=== PATIENT | female | born 1955 | race Caucasian/White ===

== ENCOUNTER 2020-01-15 11:40 | Outpatient (CLI) | payer BC, SELFPAY ==
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
== END 2020-01-15 11:41 | disposition home or self-care (01) ==
LOC: ONCMED 11:41
PROVIDERS: PCP Family Medicine; Referring Provider Family Medicine; Visit Provider Internal Medicine Medical Oncology
DX: Z08 Encounter for follow-up examination after completed treatment for malignant neoplasm (principal); Z85.048 Personal history of other malignant neoplasm of rectum, rectosigmoid junction, and anus; F51.04 Psychophysiologic insomnia; F32.9 Major depressive disorder, single episode, unspecified; E78.5 Hyperlipidemia, unspecified; E03.9 Hypothyroidism, unspecified; Z92.21 Personal history of antineoplastic chemotherapy; Z92.3 Personal history of irradiation; Z79.899 Other long term (current) drug therapy; R53.83 Other fatigue
CPT/HCPCS: 99203

== ENCOUNTER 2020-04-21 14:30 | Outpatient (CLI) | payer BC, SELFPAY ==
--- NOTE | 2020-04-21 14:35 | MR_ITS ---
WS: [id number] INDICATION: Anal cancer TECHNIQUE: MRI of the abdomen and pelvis without gadolinium enhancement axial T2, axial fiesta, axial T1 fat sat, axial T1 imaging. Coronal 2-D fiesta and STIR imaging. FINDINGS: Liver is normal in appearance. No evidence of metastatic disease in the liver. Normal frank l vein and splenic vein. Normal spleen. Small splenule. Pancreas is normal. Normal caliber abdominal aorta. No abdominal lymphadenopathy. No iliac or perirectal lymphadenopathy. No inguinal lymphadenopathy. Normal bone marrow signal in the pelvis. Normal perirectal fat. Visualized rectum appears normal. Normal visualized sigmoid colon. No rmal bone marrow signal in the lumbar spine. Normal bone marrow signal in the sacrum, hips and proxim al femurs. MR/MR abdomen wo con [id number] IMPRESSION: 1. No evidence of metastatic disease in the abdomen or pelvis. 2. Normal liver. 3. No abdominal or pelvic lymphadenopathy. 4. Visualized rectum appears normal. 5. Normal visualized bony structures.
--- NOTE | 2020-04-21 14:36 | MR_ITS ---
WS: [id number] INDICATION: Anal cancer TECHNIQUE: MRI of the abdomen and pelvis without gadolinium enhancement axial T2, axial fiesta, axial T1 fat sat, axial T1 imaging. Coronal 2-D fiesta and STIR imaging. FINDINGS: Liver is normal in appearance. No evidence of metastatic disease in the liver. Normal frank l vein and splenic vein. Normal spleen. Small splenule. Pancreas is normal. Normal caliber abdominal aorta. No abdominal lymphadenopathy. No iliac or perirectal lymphadenopathy. No inguinal lymphadenopathy. Normal bone marrow signal in the pelvis. Normal perirectal fat. Visualized rectum appears normal. Normal visualized sigmoid colon. No rmal bone marrow signal in the lumbar spine. Normal bone marrow signal in the sacrum, hips and proxim al femurs. MR/MR pelvis wo con* [id number] IMPRESSION: 1. No evidence of metastatic disease in the abdomen or pelvis. 2. Normal liver. 3. No abdominal or pelvic lymphadenopathy. 4. Visualized rectum appears normal. 5. Normal visualized bony structures.
== END 2020-04-21 14:31 | disposition home or self-care (01) ==
PROVIDERS: Family Provider Family Medicine; PCP Family Medicine; Visit Provider Internal Medicine Medical Oncology
DX: C21.1 Malignant neoplasm of anal canal (principal)
CPT/HCPCS: 72195; 74181

== ENCOUNTER → 2022-08-08 14:49 | Outpatient (BNVA) | payer OTHER, SELFPAY | PROVIDERS: Family Provider Family Medicine; PCP Family Medicine; Referring Provider Family Medicine; Visit Provider Student in an Organized Health Care Education/Training Program | DX: G25.89 Other specified extrapyramidal and movement disorders (principal); S49.92XA Unspecified injury of left shoulder and upper arm, initial encounter; X58.XXXA Exposure to other specified factors, initial encounter | CPT/HCPCS: 73030 ==